=== PATIENT | female | born 1965 | race Asian ===

== ENCOUNTER 2016-04-02 10:46 | Emergency (ER) | payer OTHER ==
[~2016-04-02] VITALS: Ht 170.2 cm; Wt 131.4 kg
[2016-04-02 11:43] LABS: PLATELET COUNT 376 K/uL (152-353)
[2016-04-02 11:52] LABS: POTASSIUM 3.5 mmol/L (3.6-5.2); SODIUM 132 mmol/L (136-145)
[2016-04-02 13:04] VITALS: BP 159/76; TEMP 97.9
== END 2016-04-02 13:05 | disposition home or self-care (01) ==
LOC: ED 10:46
DX: J20.9 Acute bronchitis, unspecified (principal)
CPT/HCPCS: 36415; 80053; 85027; 99283

== ENCOUNTER → 2017-05-17 15:37 | Outpatient (CLI) | payer BC, OTHER | END | disposition home or self-care (01) | LOC: AMB 15:37 | DX: Z04.1 Encounter for examination and observation following transport accident (principal) ==

== ENCOUNTER 2017-05-17 17:32 | Emergency (ER) | payer BC, OTHER ==
[~2017-05-17] VITALS: Ht 167.6 cm; Wt 130.6 kg
[2017-05-17 17:40] VITALS: BP 170/104; TEMP 97.2
== END 2017-05-17 18:51 | disposition home or self-care (01) ==
LOC: ED 17:32
DX: S39.012A Strain of muscle, fascia and tendon of lower back, initial encounter (principal); S80.01XA Contusion of right knee, initial encounter; V43.52XA Car driver injured in collision with other type car in traffic accident, initial encounter; Y92.89 Other specified places as the place of occurrence of the external cause
CPT/HCPCS: 99283

== ENCOUNTER 2018-02-04 14:19 | Outpatient (CLI) | payer BC | END 2018-02-04 22:34 | disposition home or self-care (01) | LOC: MAMMO 14:19 | DX: Z12.31 Encounter for screening mammogram for malignant neoplasm of breast (principal) ==

== ENCOUNTER 2018-03-01 09:03 | Outpatient (CLI) | payer BC | END 2018-03-01 21:23 | disposition home or self-care (01) | LOC: MAMMO 09:03 | DX: R92.2 Inconclusive mammogram (principal) ==

== ENCOUNTER 2019-02-28 07:33 | Outpatient (CLI) | payer BC | END 2019-02-28 19:37 | disposition home or self-care (01) | LOC: MAMMO 07:33 | DX: Z12.31 Encounter for screening mammogram for malignant neoplasm of breast (principal) ==

== ENCOUNTER 2020-03-02 09:54 | Outpatient (CLI) | payer BC | END 2020-03-02 19:11 | disposition home or self-care (01) | LOC: MAMMO 09:54 | PROVIDERS: ATTEND Obstetrics & Gynecology | DX: Z12.31 Encounter for screening mammogram for malignant neoplasm of breast (principal) ==

== ENCOUNTER 2020-05-10 08:02 | Emergency (ER) | payer BC ==
[~2020-05-10] VITALS: Ht 167.6 cm; Wt 130.6 kg
[2020-05-10 08:15] VITALS: TEMP 98.9
[2020-05-10 09:30] VITALS: BP 154/82
== END 2020-05-10 09:40 | disposition home or self-care (01) ==
LOC: ED 08:02
DX: A08.39 Other viral enteritis (principal)
CPT/HCPCS: 96372; 99283; J2405

== ENCOUNTER 2021-06-21 10:55 | Outpatient (CLI) | payer BC | END 2021-06-21 19:43 | disposition home or self-care (01) | LOC: MAMMO 10:55 | PROVIDERS: ATTEND Obstetrics & Gynecology | DX: Z12.31 Encounter for screening mammogram for malignant neoplasm of breast (principal) ==

== ENCOUNTER 2021-11-20 12:14 | Emergency (ER) | payer BC ==
[~2021-11-20] VITALS: Ht 167.6 cm; Wt 130.6 kg
[2021-11-20 12:15] VITALS: TEMP 98.5
[2021-11-20 13:33] VITALS: BP 184/85
== END 2021-11-20 13:37 | disposition home or self-care (01) ==
LOC: ED 12:14
DX: R19.7 Diarrhea, unspecified (principal); T36.0X5A Adverse effect of penicillins, initial encounter; T36.1X5A Adverse effect of cephalosporins and other beta-lactam antibiotics, initial encounter; R10.84 Generalized abdominal pain; I10 Essential (primary) hypertension; X58.XXXA Exposure to other specified factors, initial encounter; Y92.89 Other specified places as the place of occurrence of the external cause
CPT/HCPCS: 99282

== ENCOUNTER 2022-06-27 09:29 | Outpatient (CLI) | payer BC | END 2022-06-27 20:52 | disposition home or self-care (01) | LOC: MAMMO 09:29 | PROVIDERS: ATTEND Nurse Practitioner Family | DX: Z12.31 Encounter for screening mammogram for malignant neoplasm of breast (principal) ==

== ENCOUNTER 2022-11-17 08:32 | Outpatient (CLI) | payer BC | END 2022-11-17 19:08 | disposition home or self-care (01) | LOC: CT 08:32 | PROVIDERS: ATTEND Nurse Practitioner Family | DX: R10.9 Unspecified abdominal pain (principal) ==